=== PATIENT | male | born 1975 | race Caucasian/White ===

== ENCOUNTER 2020-09-16 18:18 | Emergency (ER) | payer OTHER ==
[2020-09-16] MEDS ORDERED: PERCOCET 7.5/321 TAB PO (20:35)
[2020-09-16] MEDS ORDERED: PERCOCET 7.5-31 EACH PO (21:26)
== END 2020-09-16 20:54 | disposition home or self-care (01) ==
LOC: FER 18:18
DX: S82.102A Unspecified fracture of upper end of left tibia, initial encounter for closed fracture (principal); Z88.0 Allergy status to penicillin; X58.XXXA Exposure to other specified factors, initial encounter; Y92.009 Unspecified place in unspecified non-institutional (private) residence as the place of occurrence of the external cause
CPT/HCPCS: 73564